=== PATIENT | female | born 1975 | race Two or more races ===

== ENCOUNTER 2020-03-20 05:55 | Day surgery (SDC) | payer OTHER | END 2020-03-20 09:50 | disposition home or self-care (01) | LOC: AMB-ENDOS 05:55 | PROVIDERS: ATTEND Surgery | DX: K62.89 Other specified diseases of anus and rectum (principal); K64.8 Other hemorrhoids; Z20.828 Contact with and (suspected) exposure to other viral communicable diseases ==

== ENCOUNTER 2020-08-28 09:45 | Inpatient (IN) | payer OTHER ==
[~2020-08-28] VITALS: Ht 167.6 cm; Wt 62.6 kg
== END 2020-09-01 11:01 | disposition home or self-care (01) | DRG 743 ==
LOC: O/R 08-30 05:40 → SURG-SUITE 08-30 05:40 → OB/GYN 08-30 07:00 → SURG-SUITE 08-30 12:25
PROVIDERS: ADMIT Obstetrics & Gynecology Gynecologic Oncology; ATTEND Obstetrics & Gynecology Gynecologic Oncology
PROC: 0UB77ZZ Excision of Bilateral Fallopian Tubes, Via Natural or Artificial Opening (ICD-10-PCS; 2020-08-30)
PROC: 0UB07ZZ Excision of Right Ovary, Via Natural or Artificial Opening (ICD-10-PCS; 2020-08-30)
PROC: 0UT9FZZ Resection of Uterus, Via Natural or Artificial Opening With Percutaneous Endoscopic Assistance (ICD-10-PCS; principal; 2020-08-30 07:00)
DX: D25.1 Intramural leiomyoma of uterus (principal); D25.2 Subserosal leiomyoma of uterus; N83.11 Corpus luteum cyst of right ovary; N83.8 Other noninflammatory disorders of ovary, fallopian tube and broad ligament; D50.0 Iron deficiency anemia secondary to blood loss (chronic); K57.30 Diverticulosis of large intestine without perforation or abscess without bleeding; R87.619 Unspecified abnormal cytological findings in specimens from cervix uteri